=== PATIENT | female | born 1980 | race Two or more races ===

== ENCOUNTER 2017-01-31 14:53 | Emergency (ER) | payer MEDICAID ==
[~2017-01-31] VITALS: Ht 162.6 cm; Wt 68.0 kg
[~2017-01-31 14:53] MED LIST: DULO60CA; LORA-205 PO; LORA2TAB89; QUET150T2 PO; SERT-138 PO; ZOLP10TA PO
[2017-01-31 15:44] LABS: Basophils # (auto) 0 uL; Basophils % (auto) 0.1 % (0.0-2.0); DEFINITIVE VIEW TRANSMISSION; Eosinophils # (auto) 0 uL; Eosinophils % (auto) 0.1 % (0.0-7.0); Hematocrit 33.8 % (36.0-46.0); Hemoglobin 10.9 g/dL (12.2-16.2); Lymphocytes # (auto) 1.1 uL; Lymphocytes % (auto) 15.3 % (10.0-50.0); Mean Corpuscular Hemoglobin 24.9 pg (28.0-32.0); Mean Corpuscular Hgb Conc. 32.2 g/dL (32.0-36.0); Mean Corpuscular Volume 77.1 fL (80.0-100.0); Mean Platelet Volume 9.4 fL (7.4-10.4); Monocytes # (auto) 0.5 uL; Monocytes % (auto) 7.3 % (0.0-12.0); Neutrophils # (auto) 5.6 uL; Neutrophils % (auto) 77.2 % (37.0-80.0); Platelet Count (auto) 343 10^3/uL (140-450); Red Cell Distribution Width 17.7 % (11.6-16.0); White Blood Cell 7.3 10^3/uL (4.4-10.8)
[2017-01-31 16:00] LABS: Salicylate < 1.7 mg/dL (2.8-20.0)
[2017-01-31 16:06] LABS: BUN/Creatinine Ratio 9.2; Bilirubin, Total 0.3 mg/dL (0.2-1.0); Calcium 8.5 mg/dL (8.5-10.1); Potassium 3.2 mmol/L (3.5-5.1); Total Protein 8.8 g/dL (6.4-8.2)
[2017-01-31 16:10] LABS: Acetaminophen < 2.0 ug/mL (10-30)
[2017-01-31] MEDS ORDERED: LORazepam 0.5 MG TAB PO ONE (16:45)
[2017-01-31 17:05] LABS: Urine RBC None Seen /hpf (0 - 4)
[2017-01-31 17:32] LABS: Urine Bilirubin Negative (Negative); Urine Blood Negative /uL (Negative); Urine Color Colorless (Yellow); Urine Glucose Normal (Normal); Urine Ketone Negative (Negative); Urine Nitrite Negative (Negative); Urine Squamous Epithelial Cell FEW /hpf (<5); Urine Urobilinogen Normal (Negative)
[2017-01-31] MEDS ORDERED: POTASSIUM CHL 10% (20 MEQ/15ML) ORAL SOLN PO ONE (18:45)
[2017-01-31 20:37] VITALS: BP 127/70
== END 2017-02-01 04:24 | disposition other institution (70) ==
LOC: ER 14:53 → EDBD 14:53 → ER 02-01 03:46
DX: S61.512A Laceration without foreign body of left wrist, initial encounter (principal); F32.9 Major depressive disorder, single episode, unspecified; W27.8XXA Contact with other nonpowered hand tool, initial encounter; Y93.89 Activity, other specified; Y99.8 Other external cause status; Y92.89 Other specified places as the place of occurrence of the external cause
CPT/HCPCS: 12002; 36415; 80053; 80320; 80329; 81001; 81025; 85025; 99285; G0434

== ENCOUNTER 2019-09-07 16:55 | Emergency (ER) | payer MEDICAID ==
[~2019-09-07] VITALS: Ht 167.6 cm; Wt 63.5 kg
[~2019-09-07 16:55] MED LIST changes: -SERT-138 PO; +SERT50TA PO
[2019-09-07] MEDS ORDERED: SODIUM CHLORIDE 0.9% 1,000 ML IV ONE (17:11)
[2019-09-07] MEDS ORDERED: FLUMAZENIL 0.1 MG/ML INJ 10ML MDV IV ONE (17:15)
[2019-09-07 17:29] LABS: Basophils # (auto) 0 uL; Basophils % (auto) 0.5 % (0.0-2.0); Eosinophils # (auto) 0.1 uL; Eosinophils % (auto) 1.8 % (0.0-7.0); Hematocrit 36.9 % (36.0-46.0); Lymphocytes % (auto) 15.6 % (10.0-50.0); Mean Corpuscular Hemoglobin 29.2 pg (28.0-32.0); Mean Corpuscular Hgb Conc. 32.7 g/dL (32.0-36.0); Mean Corpuscular Volume 89.3 fL (80.0-100.0); Monocytes # (auto) 0.5 uL; Monocytes % (auto) 7.8 % (0.0-12.0); Neutrophils # (auto) 4.9 uL; Neutrophils % (auto) 74.3 % (37.0-80.0); Platelet Count (auto) 249 10^3/uL (140-450); Red Blood Cells 4.13 10^6/uL (4.0-5.20); Red Cell Distribution Width 16.7 % (11.8-14.3); White Blood Cell 6.5 10^3/uL (4.4-10.8)
[2019-09-07 17:46] LABS: Alanine Aminotransferase 25 U/L (13-56); Albumin 3.6 g/dL (3.4-5.0); Anion Gap 4 (5-15); Blood Alcohol < 3.0 mg/dL (0-5); Blood Urea Nitrogen 6 mg/dL (7-18); Calcium 8.7 mg/dL (8.5-10.1); Carbon Dioxide 24 mmol/L (21-32); Chloride 109 mmol/L (98-107); Glucose 99 mg/dL (74-106); Potassium 3.6 mmol/L (3.5-5.1); Sodium 137 mmol/L (136-145)
[2019-09-07 17:47] LABS: Salicylate < 1.7 mg/dL (2.8-20.0)
[2019-09-07 17:50] LABS: Alkaline Phosphatase 74 U/L (45-117); Aspartate Aminotransferase 17 U/L (15-37); BUN/Creatinine Ratio 8.1; Bilirubin, Total 0.2 mg/dL (0.2-1.0); GFR African American 112 mL/min; GFR Non-African American 93 mL/min; Total Protein 7.6 g/dL (6.4-8.2)
[2019-09-07 18:03] LABS: Acetaminophen < 2.0 ug/mL (10-30)
[2019-09-07 18:55] LABS: Alcohol, Urine < 3.0 mg/dL (0-5); Amphetamine Screen, Urine NEGATIVE (NEGATIVE); Barbiturate Scree,Urine NEGATIVE (NEGATIVE); Benzodiazephine Screen, Urine NEGATIVE (NEGATIVE); Cannabinoid Screen, Urine NEGATIVE (NEGATIVE); Cocaine Screen, Urine NEGATIVE (NEGATIVE); Opiate Scree,Urine NEGATIVE (NEGATIVE); Phencyclidine Screen, Urine NEGATIVE (NEGATIVE)
[2019-09-07 19:10] LABS: Urine Bacteria FEW /hpf (None Seen); Urine Blood Negative /uL (Negative); Urine Specific Gravity 1.012 (1.001-1.035); Urine WBC 4 /hpf (0 - 5)
[2019-09-08] MEDS ORDERED: LORazepam 2MG/ML-1ML VIAL IV ONE (02:00)
[2019-09-08] MEDS ORDERED: QUEtiapine FUMARATE 100 MG TAB PO SCH (04:00)
[2019-09-08] MEDS ORDERED: LORazepam 0.5 MG TAB PO ONE (11:30)
[2019-09-08] MEDS ORDERED: LORazepam 2MG/ML-1ML VIAL IM ONE (14:30)
[2019-09-08] MEDS ORDERED: HALOPERIDOL LACTATE 5 MG/ML INJ VIAL IM ONE (14:30)
[2019-09-08] MEDS ORDERED: diphenhdrAMINE HCL 50 MG/1 ML VL IM ONE (14:30)
[2019-09-08 21:20] VITALS: BP 107/68
== END 2019-09-08 21:20 | disposition short-term general hospital (02) ==
LOC: ER 16:55 → EDBD 16:55 → ER 09-08 21:20
DX: F41.9 Anxiety disorder, unspecified (principal); F32.9 Major depressive disorder, single episode, unspecified; F12.10 Cannabis abuse, uncomplicated; F17.210 Nicotine dependence, cigarettes, uncomplicated
CPT/HCPCS: 36415; 80053; 80307; 80320; 80329; 81001; 81025; 85025; 93005; 96361; 96372; 96374; 99285; J1200; J1630; J2060